=== PATIENT | female | born 1985 | race Caucasian/White ===

== ENCOUNTER 2017-07-05 21:50 | Emergency (ER) | payer SELFPAY ==
[2017-07-05 21:58] VITALS: BP 125/84; BMI 27.7
[2017-07-05 22:37] LABS: BILIRUBIN,URINE NEGATIVE (NEGATIVE); BLOOD/HEMOGLOBIN,URINE NEGATIVE (NEGATIVE); GLUCOSE, URINE NEGATIVE (NEGATIVE); KETONES,URINE NEGATIVE (NEGATIVE); LEUKOCYTE ESTERASE ,URINE NEGATIVE (NEGATIVE); NITRITES,URINE NEGATIVE (NEGATIVE); PH,URINE 6.5 (5.0 - 8.0); PROTEIN,URINE NEGATIVE (NEGATIVE); UROBILINOGEN,URINE NORMAL (NORMAL)
[2017-07-05 22:41] LABS: APPEARANCE,URINE CLEAR (CLEAR); COLOR,URINE YELLOW (YELLOW)
[2017-07-05 22:53] LABS: SERUM PREGNANCY TEST, QUAL POSITIVE >10 mIU/mL
--- NOTE | 2017-07-06 01:13 | US ---
Obstetric ultrasound Indication: Positive test. Cramping. Comparison: None Technique: Sonographic images of the pelvis were obtained endovaginally per protocol. Findings: The uterus measures 8.0 x 4.8 x 6.0 cm. There is a single intrauterine gestational sac quoc uring 2.7 cm. pole with a crown-rump length of 4 mm is noted. Cardiac activity was observed, bu t heart rate cannot be measured. Yolk sac measuring 4 mm is noted. The adnexa and ovaries appear normal. The right ovary is 3.0 x 2.4 x 2.5 cm in the left ovary is 2.0 x 1.4 x 2.1 cm. No pelvic free fluid. Impression: Single viable intrauterine measuring 6 weeks, 6 days, for an estimated delivery of 02/22/2018. Reported By:
--- NOTE | 2017-07-06 01:26 | DR.GENAD ---
HPI - PCP Primary Care Physician: NOREEN - HPI Comment HPI Comment: HISTORY BELOW. 1 AND PARA 0 - Complaint/Symptoms Chief Complaint Doctors Comments: LOWER ABDOMINAL CRAPING TODAY AND GETTING WORSE. PATIENT IS . NO MENSIS SINCE 05/20/2017. Chief Complaint:: POSITIVE HOME TEST A FEW DAYS AGO, AND NOW CRAMPING. [facility] [id number]. VAGINAL DISCHARGE-WHITE MUCOUS -NOT NEW. ALWAYS HAS DISCHARGE. DENIES ANY BLOOD SHOW. - Nurses notes reviewed Nurses Notes Review: Yes - Source History Provided: Patient - Mode of Arrival Mode of Arrival: Ambulatory - Timing Onset of Chief Complaint: 07/05/17 Came on: Suddenly - Duration Duration: Constant Duration: Hours - Severity Severity: Moderate PMH - PMH Past Medical History: No Past Surgical History: No - Family History History of Family Medical Conditions: Yes Family Medical History: Diabetes Mellitus - Social History Does patient currently use any type of tobacco product: No Have you used tobacco products in the last 12 months: No Type of Tobacco Use: None Does any household member use tobacco: No Alcohol Use: None Do you use any recreational Drugs:: No Lives Where: Home - infectious screening Have you traveled outside the country in the last 6 months?: No Isolation: Standard ROS - Review of Systems Constitutional: No Symptoms Reported Eyes: No Symptoms Reported ENTM: No Symptoms Reported Respiratoy: No Symptoms Reported Cardiovascular: No Symptoms Reported Gastrointestinal/Abdominal: Abdominal Pain, Nausea Genitourinary: No Symptoms Reported Neurological: No Symptoms Reported Musculoskeletal: No Symptoms Reported Integumentary: No Symptoms Reported Hematologic/Lymphatic: No Symptoms Reported Endocrine: No Symptoms Reported All Other Systems: Reviewed and Negative PE - Vital Signs Vitals: Temperature 98.6 F Pulse Rate 80 Respiratory Rate 18 Blood Pressure 125/84 O2 Sat by Pulse Oximetry 99 - General Limitations: No Limitations General Appearance: Alert - Head Head Exam: Normal Inspection - Eyes Eye exam: Normal Appearance - ENT ENT Exam: Normal External Ear Exam External Ear Exam: Normal External Inspection TM/Canal Exam: Bilateral Normal Nose Exam: Normal Nose Exam Mouth Exam: Normal Inspection Throat Exam: Normal Inspection - Neck Neck Exam: Trachea Midline - Chest Chest Inspection: Symmetric Chest Wall Rise - Respiratory Respiratory Exam: Normal Lung Sounds Bilat Respiratory Exam: Bilateral Clear to Auscultation - Cardiovascular Cardiovascular Exam: Regular Rate, Normal Rhythm, Normal Heart Sounds - Abdominal Exam Abdominal Exam: Normal Bowel Sounds, Soft, Tenderness Abdominal Tenderness: RLQ, LLQ, Suprapubic, Diffuse - Extremities Extremities Exam: Normal Inspection - Back Back Exam: Normal Inspection - Neurologic Neurological Exam: Alert, Oriented X3 - Psychiatric Psychiatric Exam: Normal Affect, Normal Mood - Skin Skin Exam: Normal Color MDM - Differential Diagnosis Differential Diagnosis: LOWER ABDOMINAL PAIN Course - Treatment Treatment: SEE ORDERS. - Education/Counseling Education/Counseling: Patient, Education Educated On: Diagnosis, Needs for Follow Up ROR - Labs Reviewed Laboratory: HCG, Qual Positive >10 mIU/mL 07/05/17 22:37 HCG, Quant 45265 mIU/mL (0-6) H 07/05/17 22:37 Specimen Type Clean catch urine 07/05/17 22:32 Urine Color Yellow (YELLOW) 07/05/17 22:32 Urine Appearance Clear (CLEAR) 07/05/17 22:32 Urine pH 6.5 (5.0 - 8.0) 07/05/17 22:32 Ur Specific [place] 1.010 (1.000-1.030) 07/05/17 22:32 Urine Protein Negative (NEGATIVE) 07/05/17 22:32 Urine Glucose (UA) Negative (NEGATIVE) 07/05/17 22:32 Urine Ketones Negative (NEGATIVE) 07/05/17 22:32 Urine Occult Blood Negative (NEGATIVE) 07/05/17 22:32 Urine Nitrite Negative (NEGATIVE) 07/05/17 22:32 Urine Bilirubin Negative (NEGATIVE) 07/05/17 22:32 Urine Urobilinogen Normal (NORMAL) 07/05/17 22:32 Ur Leukocyte Esterase Negative (NEGATIVE) 07/05/17 22:32 - XRAY XRAY Interpreted by: Radiologist XRAY Findings: REPORT DISCUSS WITH PATIENT. - Diagnosis Discharge Problem: Abdominal pain affecting - Discharge Plan Disposition: HOME, SELF-CARE Condition: Stable - Follow ups/Referrals Follow ups/Referrals: [facility],None [Primary Care Provider] - 1 day BRAEDEN PITT [STAFF PHYSICIAN] - 1 day - Instructions Instructions: Abdominal Pain During , [id number], Pelvic Rest Additional Instructions: RETURN TO ED IF WORSE.
== END 2017-07-06 01:32 | disposition home or self-care (01) ==
LOC: ER 22:05
DX: O26.891 Other specified pregnancy related conditions, first trimester (principal); Z3A.01 Less than 8 weeks gestation of pregnancy; R10.9 Unspecified abdominal pain
CPT/HCPCS: 36415; 76801; 81003; 84702; 84703; 99283; 99284